=== PATIENT | male | born 1965 | race African-American/Black ===

== ENCOUNTER 2017-11-20 17:55 | Observation (INO) | payer BC, OTHER ==
[2017-11-20 18:15] VITALS: BMI 37.3
--- NOTE | 2017-11-20 18:39 | PDOC ---
History of Present Illness - General Chief Complaint: Pain, Acute Stated Complaint: STOMACH PAIN Time Seen by Provider: 11/20/17 18:38 - History of Present Illness Initial Comments: 11/20/17 18:40 Mr. Metcalf is a 52 yo male w/ pmh of HTN and HLD who presents... Past History - Past Medical History Allergies/Adverse Reactions: Allergies Allergy/AdvReac Type Severity Reaction Status Date / Time No Known Allergies Allergy Verified 05/22/15 14:51 Home Medications: Ambulatory Orders Aspirin [Aspirin EC] 325 mg PO DAILY 10/09/12 Metoprolol Succinate [Toprol XL -] 25 mg PO DAILY 10/09/12 Oxycodone HCl/Acetaminophen [Percocet 5/325 -] 1 tab PO Q4H #30 tablet 05/22/15 Cardiac Disorders: Yes (HOSPITALIZED 2010 AT [facility], [place]) COPD: No HTN: Yes Hypercholesterolemia: Yes - Suicide/Smoking/Psychosocial Hx Smoking Status: No Smoking History: Never smoked Have you smoked in the past 12 months: No Number of Cigarettes Smoked Daily: 0 Information on smoking cessation initiated: No Hx Alcohol Use: Yes ("occasional") Drug/Substance Use Hx: No Substance Use Type: None *Physical Exam - Vital Signs Last Vital Signs Temp Pulse Resp BP Pulse Ox 97.7 F 74 20 149/88 98 11/20/17 18:08 11/20/17 18:08 11/20/17 18:08 11/20/17 18:08 11/20/17 18:08
--- NOTE | 2017-11-20 18:45 | PDOC ---
Attending Attestation - [facility] HPI: 11/20/17 19:49 The patient is a 52 year old male, with a significant past medical history of HTN, HLD, AK (2010), who presents to the emergency department with, 4 days of intermittent epigastric pain. He describes his pain as a quick, sharp spasm radiating to his chest. He describes the pain to be similar to that of his AK in 2010. He saw his PCP on whom performed an EKG which was unchanged. He visits his brown sourer Dr. Camara every 6 months and next appointment is 11/29. He denies any diaphoresis. He denies any recent fevers, chills, headache or dizziness. He denies any recent nausea, vomit, diarrhea or constipation. He denies any recent shortness of breath. He denies any recent dysuria, frequency, urgency or hematuria. Allergies: NKA Past surgical history: None reported. Social History: Nonsmoker. Denies EtOH use and recreational drug use. - Physicial Exam PE: 11/20/17 19:49 Constitutional: Awake, alert, oriented. No acute distress. Head: Normocephalic. Atraumatic Eyes: PERRL. EOMI. Conjunctivae are not pale. ENT: Mucous membranes are moist and intact. Posterior pharynx without exudates or erythema. Uvula midline. Neck: Supple. Full ROM. No lymphadenopathy. Cardiovascular: Regular rate. Regular rhythm. S1, S2 regular. Distal pulses are 2+ and symmetric. Pulmonary/Chest: No evidence of respiratory distress. Clear to auscultation bilaterally No wheezing, rales or rhonchi. +Abdominal: Mild epigastric tenderness. Soft and non-distended. No rebound, guarding or rigidity. No organomegaly. No palpable masses. Good bowel sounds. Back: No CVA tenderness. Musculoskeletal: No edema. No cyanosis. No clubbing. Full range of motion in all extremities. N calf tenderness. Radial/pedal pulses are intact and 2+ bilaterally Skin: Skin is warm and dry. No petechiae. No purpura. Neurological: Alert and oriented to person, place, and time. Cranial nerves II -XII are grossly intact. Normal speech. Strength is grossly symmetric. No sensory deficits. Psychiatric: Good eye contact. Normal interaction, affect and behavior. <Cassia Mcnally - Last Filed: 11/20/17 21:32> - Resident Resident Name: Tru Garrison - ED Attending Attestation I have performed the following: I have examined & evaluated the patient, The case was reviewed & discussed with the resident, I agree w/resident's findings & plan, Exceptions are as noted - Medical Decision Making 11/20/17 18:45 I, Dr. Sandra Vega, DO, attest that this document has been prepared under my direction and personally reviewed by me in its entirety. I further attest, that it accurately reflects all work, treatment, procedures and medical decision -making performed by me. 11/20/17 19:33 a/p: 52yo male with hx of NSTEMI in 2010 - no stents, takes ASA 324 daily with intermittent epigastric/cp since -states symptoms are similar to NSTEMI in 2010 -Dr. Schafer is Cards -took his asa today -will check labs, ekg, cxr -will need tele obs for cards eval in the am -never had cath or stents 11/20/17 20:14 pt with vomiting - will medicate will obtain bedside RUQ u/s to eval for biliary disease 11/20/17 20:15 cxr without acute findings 11/20/17 21:56 pt states feeling better at this time no longer with n/v trop negative will place in obs for cards eval in AM and repeat trops 11/20/17 22:13 bedside ultrasound of RUQ - no gallstones visualized, no pericholecystic fluid, no gb wall thickening <Sandra Vega - Last Filed: 11/20/17 22:14> Heart Score/ECG Review - [facility]as Comment: 11/20/17 19:34 sinus at 69, nl axis, nl interval, t wave inversions III which are unchanged from 2009 <Sandra Vega - Last Filed: 11/20/17 22:14> Attestations - Attestations 11/20/17 19:50 Documentation prepared by Cassia Mcnally, acting as medical concierge for Sandra Vega DO. <Cassia Mcnally - Last Filed: 11/20/17 21:32>
[2017-11-20] MEDS ORDERED: SODIUM CHLORIDE 1,000 ML IV STA (19:07)
--- NOTE | 2017-11-20 19:07 | PDOC ---
History of Present Illness - General Chief Complaint: Pain, Acute Stated Complaint: STOMACH PAIN Time Seen by Provider: 11/20/17 18:38 - History of Present Illness Initial Comments: 11/20/17 19:13 The patient is a 52 year old male with a history of HTN, HLD, MO who presents for evaluation of abdominal pain. The patient reports onset of poorly described epigastric abdominal pain beginning 4 days ago with radiation into his chest. He notes that his symptoms are intermittent and feel like "spasms" but denies any exacerbating or relieving factors. He notes that his symptoms feel somewhat similar to his primary MO in 2010. He otherwise denies fevers, chills, SOB, nausea, vomiting, or changes with urination or bowel movements. Past History - Past Medical History Allergies/Adverse Reactions: Allergies Allergy/AdvReac Type Severity Reaction Status Date / Time No Known Allergies Allergy Verified 11/20/17 19:26 Home Medications: Ambulatory Orders Aspirin [Aspirin EC] 325 mg PO DAILY 10/09/12 Metoprolol Succinate [Toprol XL -] 25 mg PO DAILY 10/09/12 Oxycodone HCl/Acetaminophen [Percocet 5/325 -] 1 tab PO Q4H #30 tablet 05/22/15 Omeprazole 2 cap PO DAILY 11/20/17 Rosuvastatin Calcium [Crestor] 5 mg PO DAILY 11/20/17 Cardiac Disorders: Yes (HOSPITALIZED 2010 AT [place], [place]) COPD: No HTN: Yes Hypercholesterolemia: Yes - Suicide/Smoking/Psychosocial Hx Smoking Status: No Smoking History: Never smoked Have you smoked in the past 12 months: No Number of Cigarettes Smoked Daily: 0 Information on smoking cessation initiated: No Hx Alcohol Use: Yes ("occasional") Drug/Substance Use Hx: No Substance Use Type: None Review of Systems - Review of Systems Comments:: 11/20/17 19:15 Constitutional: No fevers, chills, fatigue, malaise HEENT: No Rhinorrhea, nasal congestion, visual changes Cardiovascular: No syncope, palpitations, lightheadedness Respiratory: No Cough, SOB, Hemoptysis, Gastrointestinal: Abdominal pain. No Nausea, Vomiting, Constipation, Diarrhea, Melena Genitourinary: No Dysuria, Frequency, Urgency, Hesitancy, Hematuria, Flank pain Musculoskeletal: No Myalgia, arthralgia Skin: No rashes, itching, bruising, pallor Neurologic: No Headache, Dizziness, Numbness, Weakness, or Tingling Psychiatric: No Hallucinations. No SI or HI *Physical Exam - Vital Signs Last Vital Signs Temp Pulse Resp BP Pulse Ox 97.7 F 74 20 149/88 98 11/20/17 18:08 11/20/17 18:08 11/20/17 18:08 11/20/17 18:08 11/20/17 18:08 - Physical Exam Comments: 11/20/17 19:16 General Appearance: Nourished. No Apparent Distress HEENT: EOMI, ANTWAN. No Pharyngeal Erythema, Tonsillar Exudate, Tonsillar Erythema Neck: No Cervical Lymphadenopathy Respiratory/Chest: Lungs Clear, Normal Breath Sounds. No Crackles, Rales, Rhonchi, Wheezing Cardiovascular: Regular Rhythm, Regular Rate. No Murmur, Gallops, Rubs Gastrointestinal/Abdominal: Normal Bowel Sounds, Soft. Mild epigastric tenderness to deep palpation on exam. No Guarding, Rebound, Musculoskeletal: No CVA Tenderness Extremity: Normal Capillary Refill Integumentary: Normal Color, Dry, Warm Neurologic: Fully Oriented, Alert, Normal Mood/Affect, Normal Response, Heart Score/ECG Review - History History: Moderately suspicious - Electrocardiogram EKG: Normal - Age Age: 45-65 - Risk Factors Risk Factors Heart Score: Yes Hx Hypercholesterolemia, Yes Hx Hypertension, Yes Positive family hx of cardiac disease, Yes Hx Obesity Based on the list above the patient has:: >/=3 risk factors or Hx atherosclerotic disease - Troponin Troponin: </= normal limit - Score Heart Score - Total: 4 #1 ECG reviewed & interpreted by me at: 19:09 General ECG Interpretation: Sinus Rhythm, Normal Rate, Normal Intervals, No acute ischemic changes Compared to previous ECG there are: No significant change (05/20/2010) ED Treatment Course - LABORATORY CBC & Chemistry Diagram: 11/20/17 19:40 11/20/17 20:50 Medical Decision Making - Medical Decision Making 11/20/17 19:17 The patient is a 52 year old male with a history of HTN, HLD, MO who presents for evaluation of abdominal pain. Differential includes but is not limited to: ACS, Gastritis, Pancreatitis, Infectious, Metabolic Derangement. Given the patient's history and physical exam, we will obtain a cbc, cmp, troponin, lipase , ekg, chest plain film to evaluate further for possible etiologies. We will treat the patient with aspirin, iv fluids, pepcid, maalox. We will continue to monitor and reassess while here in the ED. 11/21/17 03:51 CBC, cmp, troponin, lipase are unremarkable. Chest plain film is unremarkable. However, given the patient's cardiac history with similar presenting symptoms , we believe he requires tele obs admission for cardiology consultation and further monitoring. We discussed the case with the admitting team who accepted the patient for admission. *DC/Admit/Observation/Transfer Diagnosis at time of Disposition: Chest pain Qualifiers: Chest pain type: unspecified Qualified Code(s): R07.9 - Chest pain, unspecified - Discharge Dispostion Condition at time of disposition: Stable Decision to Admit order: Yes - Referrals - Patient Instructions - Post Discharge Activity
[2017-11-20] MEDS ORDERED: MAG HYDROX/AL HYDROX/SIMETH 30 ML UNIT-DOSE CUP PO ONE (19:08)
[2017-11-20] MEDS ORDERED: ASPIRIN 81 MG CHEWABLE TABLETS PO ONE (19:21)
[2017-11-20] MEDS ORDERED: FAMOTIDINE 20 MG/50 ML IVPB 20 MG/50 ML MG IVPB ONE ×2 (19:45→19:55)
[2017-11-20 19:52] LABS: EOS % 2.3 % (0-4.5); HEMATOCRIT 42.7 % (35.4-49); HEMOGLOBIN 14.3 GM/dL (11.7-16.9); LYMPH % 19.6 % (8-40); MCHC 33.5 g/dl (32.0-35.9); MEAN CELL VOLUME 83.5 fl (80-96); MEAN PLT VOLUME 8.9 fl (7.5-11.1); NEUT % 70.1 % (42.8-82.8); PLATELET COUNT 227 K/MM3 (134-434); RBC 5.12 M/mm3 (4.00-5.60); RDW 14.2 % (11.9-15.9); WHITE BLOOD COUNT 8.2 K/mm3 (4.0-10.0)
[2017-11-20] MEDS ORDERED: ASPIRIN 81 MG CHEWABLE TABLETS ONE (19:54)
[2017-11-20] MEDS ORDERED: MAG HYDROX/AL HYDROX/SIMETH 30 ML UNIT-DOSE CUP ONE (19:55)
[2017-11-20] MEDS ORDERED: ONDANSETRON 4 MG/2 ML VIAL IVPUSH ONE (20:11)
[2017-11-20] MEDS ORDERED: ONDANSETRON 4 MG/2 ML VIAL ONE (20:14)
[2017-11-20 21:30] LABS: ALBUMIN 3.7 g/dl (3.4-5.0); ANION GAP 9 (8-16); BLOOD UREA NITROGEN 8 mg/dL (7-18); CHLORIDE 108 mmol/L (98-107); CO2 25 mmol/L (21-32); CREATININE 0.9 mg/dL (0.7-1.3); GLUCOSE,RANDOM 113 mg/dL (74-106); SGOT/AST 27 U/L (15-37); SGPT/ALT 34 U/L (12-78); SODIUM 142 mmol/L (136-145)
[2017-11-20 21:48] LABS: ALK PHOS 93 U/L (45-117); BILIRUBIN,TOTAL 0.4 mg/dL (0.2-1.0); LIPASE 67 U/L (73-393)
[2017-11-20] MEDS ORDERED: ONDANSETRON 4 MG/2 ML VIAL IVPUSH PRN (23:11)
[2017-11-20] MEDS ORDERED: ACETAMINOPHEN 325 MG TABLET (FP) PO PRN (23:11)
[2017-11-21] MEDS ORDERED: ACETAMINOPHEN 325 MG TABLET (FP) ONE (00:15)
--- NOTE | 2017-11-21 00:27 | HP ---
CHIEF COMPLAINT: Chest pain, crampy abdominal pain PCP: Dr. Stewart HISTORY OF PRESENT ILLNESS: 52 yo man with pmh of HTN, HLD, NSTEMI (2010) who presents with intermittent epigastric crampy abdominal pain with substernal radiation, similar in quality to prior presentation of NSTEMI 7 years ago. Pt was in his [place] when he noted progressive crampy epigastric pain with deep, sharp pain radiating to substernal chest region. Pt states the pain is intermittently exacerbated by eating food, however he denies any alleviating factors or any other areas of radiation. Pt states the pain is similar in nature to prior chest pain during his past NSTEMI 7 years ago. He denies any trauma to chest area, rashes, changes in diet, GI or cardiac conditions. Pt follows with Dr. Camara over the last 7 years and has never received a cardiac cath. He does not know when his last ECHO was performed. Pt denies any CHACON, vision changes, cough, SOB, palpitations, back pain, LE edema , claudications, rashes. Pt endorses N/V and chronic reflux. ER course was notable for: (1)CXR normal (2)Trop neg x1, normal EKG (3)Given ASA 325, famotidine x1, zofran x1, Mylanta x1, NS 1L Recent Travel: None PAST MEDICAL HISTORY: HTN HLD NSTEMI (2010) PAST SURGICAL HISTORY: None Social History: Smoking: Denies Alcohol: Denies Drugs: Denies Family History: Maternal aunt with MD Allergies No Known Allergies Allergy (Verified 11/20/17 19:26) HOME MEDICATIONS: Home Medications Medication Instructions Recorded Aspirin [Aspirin EC] 325 mg PO DAILY 10/09/12 Metoprolol Succinate [Toprol XL -] 25 mg PO DAILY 10/09/12 Oxycodone HCl/Acetaminophen 1 tab PO Q4H #30 tablet 05/22/15 [Percocet 5/325 -] Omeprazole 2 cap PO DAILY 11/20/17 Rosuvastatin Calcium [Crestor] 5 mg PO DAILY 11/20/17 REVIEW OF SYSTEMS CONSTITUTIONAL: Absent: fever, chills, diaphoresis, generalized weakness, malaise, loss of appetite, weight change HEENT: Absent: rhinorrhea, nasal congestion, throat pain, throat swelling, difficulty swallowing, mouth swelling, ear pain, eye pain, visual changes CARDIOVASCULAR: + chest pain Absent: syncope, palpitations, irregular heart rate, lightheadedness, peripheral edema RESPIRATORY: Absent: cough, shortness of breath, dyspnea with exertion, orthopnea, wheezing, stridor, hemoptysis GASTROINTESTINAL: +nausea, vomiting, abdominal pain Absent: abdominal distension, diarrhea, constipation, melena, hematochezia GENITOURINARY: Absent: dysuria, frequency, urgency, hesitancy, hematuria, flank pain, genital pain MUSCULOSKELETAL: Absent: myalgia, arthralgia, joint swelling, back pain, neck pain SKIN: Absent: rash, itching, pallor HEMATOLOGIC/IMMUNOLOGIC: Absent: easy bleeding, easy bruising, lymphadenopathy, frequent infections ENDOCRINE: Absent: unexplained weight gain, unexplained weight loss, heat intolerance, cold intolerance NEUROLOGIC: Absent: headache, focal weakness or paresthesias, dizziness, unsteady gait, seizure, mental status changes, bladder or bowel incontinence PSYCHIATRIC: Absent: anxiety, depression, suicidal or homicidal ideation, hallucinations. PHYSICAL EXAMINATION Vital Signs - 24 hr 11/20/17 11/20/17 11/20/17 18:08 19:38 23:46 Temperature 97.7 F 99.1 F Pulse Rate 74 Pulse Rate [ 75 Right Radial] Respiratory 20 16 Rate Blood Pressure 149/88 Blood Pressure 134/67 [Right Arm] O2 Sat by Pulse 98 98 Oximetry (%) GENERAL: Middle aged man, Awake, alert, and fully oriented, in no acute distress. HEAD: Normal with no signs of trauma. EYES: Pupils equal, round and reactive to light, extraocular movements intact, sclera anicteric, conjunctiva clear. No lid lag. EARS, NOSE, THROAT: Ears normal, nares patent, oropharynx clear without exudates. Moist mucous membranes. NECK: Normal range of motion, supple without lymphadenopathy, JVD, or masses. LUNGS: Trace expiratory rhochi noted in RLL field. Otherwise, breath sounds equal, clear to auscultation bilaterally. No wheezes, and no crackles. No accessory muscle use. HEART: Regular rate and rhythm, normal S1 and S2 without murmur, rub or gallop. ABDOMEN: TTP in midepigastric region on superficial and deep palpation. Soft, not distended, normoactive bowel sounds, no guarding, no rebound, no masses. No hepatomegaly or splenomegaly. MUSCULOSKELETAL: Normal range of motion at all joints. No bony deformities or tenderness. No CVA tenderness. UPPER EXTREMITIES: 2+ pulses, warm, well-perfused. No cyanosis. No clubbing. No peripheral edema. LOWER EXTREMITIES: 2+ pulses, warm, well-perfused. No calf tenderness. No peripheral edema. NEUROLOGICAL: Cranial nerves II-XII intact. Normal speech. Gait not evaluated. PSYCHIATRIC: Cooperative. Good eye contact. Appropriate mood and affect. SKIN: Warm, dry, normal turgor, no rashes or lesions noted, normal capillary refill. Laboratory Results - last 24 hr CBC, BMP 11/20/17 19:40 11/20/17 20:50 11/20/17 11/20/17 11/20/17 19:40 19:40 19:40 WBC 8.2 RBC 5.12 Hgb 14.3 Hct 42.7 MCV 83.5 MCH 28.0 MCHC 33.5 RDW 14.2 D Plt Count 227 MPV 8.9 D Absolute Neuts (auto) 5.8 Neutrophils % 70.1 Lymphocytes % 19.6 D Monocytes % 7.0 Eosinophils % 2.3 Basophils % 1.0 Nucleated RBC % 0 Sodium Cancelled Potassium Cancelled Chloride Cancelled Carbon Dioxide Cancelled Anion Gap Cancelled BUN Cancelled Creatinine Cancelled Creat Clearance w eGFR Cancelled Random Glucose Cancelled Calcium Cancelled Total Bilirubin Cancelled AST Cancelled ALT Cancelled Alkaline Phosphatase Cancelled Creatine Kinase Cancelled Creatine Kinase Index CK-MB (CK-2) Troponin I Cancelled Total Protein Cancelled Albumin Cancelled Lipase Cancelled 11/20/17 20:50 WBC RBC Hgb Hct MCV MCH MCHC RDW Plt Count MPV Absolute Neuts (auto) Neutrophils % Lymphocytes % Monocytes % Eosinophils % Basophils % Nucleated RBC % Sodium 142 Potassium 4.0 Chloride 108 H Carbon Dioxide 25 Anion Gap 9 BUN 8 D Creatinine 0.9 Creat Clearance w eGFR > 60 Random Glucose 113 H D Calcium 8.0 L Total Bilirubin 0.4 AST 27 ALT 34 Alkaline Phosphatase 93 Creatine Kinase 308 Creatine Kinase Index 0.6 CK-MB (CK-2) 2.12 Troponin I < 0.02 Total Protein 7.0 Albumin 3.7 Lipase 67 L No micro CXR - No acute pathology noted EKG - Sinus, RR, NAD, normal intervals, no ischemic changes ASSESSMENT/PLAN: 52 yo man with pmh of HTN, HLD, NSTEMI (2010) who presents with intermittent epigastric crampy abdominal pain with substernal radiation, similar in quality to prior presentation of NSTEMI 7 years ago. #Chest pain - trop neg x1; EKG normal; Heart score of 1 - Cardiac monitoring - O2 support PRN - Cardiology consult - Dr. Camara - Antonieta trops - ASA 81mg - mg, phos - tylenol prn for pain - Echo - outpt cardiology f/u - consider cardiac cath if indicated - lipid profile - will start on LIUS F-I given CAD hx #Nausea/Vomiting/epigastric pain - Zofran PRN - Protonix PO #HTN - c/w home toprol XL #CAD - ASA - cardiology f/u - will likely require stress test as outpt - cardiology consult #HLD - c/w home crestor #GERD -protonix PO PPX HSQ Protonix FEN PO hydration daily lytes cardiac diet as tolerated Plan discussed with attending, Dr. Louise Garza, PGY1 Visit type - Emergency Visit Emergency Visit: Yes ED Registration Date: 11/20/17 Care time: The patient presented to the Emergency Department on the above date and was hospitalized for further evaluation of their emergent condition. - New Patient This patient is new to me today: Yes Date on this admission: 11/22/17 - Critical Care Critical Care patient: No Hospitalist Screening - Colonoscopy Questionnaire Colonoscopy Questionnaire: Colonoscopy Questionnaire - Patient: 50 - 75 years old and never had a screening colonoscopy: Unknown History of colon or rectal polyps, or CA: Unknown History of IBD, Crohn's disease or UC: Unknown History of abdominal radiation therapy as a child: Unknown - Relative: 1 with colon or rectal CA, or polyps at age 60 or younger: Unknown Colon or rectal CA diagnosed at age 45 or younger: Unknown Multiple relatives with colon or rectal CA: Unknown - Outcome: Screening Result: Negative Screen
--- NOTE | 2017-11-21 00:36 | PN ---
Teaching Attending Note Name of Resident: Stanton Garza ATTENDING PHYSICIAN STATEMENT I saw and evaluated the patient. Chart, data, imaging reviewed. I reviewed the resident's note and discussed the case with the resident. I agree with the resident's findings and plan as documented. SUBJECTIVE: 52 yo man with HTN, HLD, NSTEMI (2010), never had angiography, c/o intermittent epigastric pain that he describes similar to pain in when he had SC in 2011. Pain is not worsened with exercise. No history of trauma. No fevers. Minimal relief with PPI. OBJECTIVE: Last Vital Signs Temp Pulse Resp BP Pulse Ox 99.1 F 75 16 134/67 98 11/20/17 23:46 11/20/17 23:46 11/20/17 23:46 11/20/17 23:46 11/20/17 19:38 general- nad, aaox3 heent - no scleral pallor neck -supple cv - s1+S2+rrr chest cta abdomen -obese skin - no pedal edema Abnormal Lab Results 11/20/17 20:50 Chloride 108 H Random Glucose 113 H D Calcium 8.0 L Lipase 67 L ekg reviewed by me, nsr, no ischemic changes noted, pending official read ASSESSMENT AND PLAN: 52yo man with epigastric pain- troponin and ekg not suggestive of acs. Heart score was 4. Other potential causes of pain include gastritis and PUD. Lipase was wnl so no pancreatitis. -tele/obsevation -trend troponin -ASA 81mg po -statin -B juliann/ACEi, given history of ACS -transthoracic echo -cardiac stress test as an outpatient -PPI empirically -send stool for H pylori ag heparin sc for dvt ppx
[2017-11-21] MEDS ORDERED: HEPARIN NA (PORCINE) 5,000 UNITS/ML 1ML VIAL ONE (05:53)
[2017-11-21] MEDS ORDERED: HEPARIN NA (PORCINE) 5,000 UNITS/ML 1ML VIAL SQ SCH (06:00)
[2017-11-21 06:44] LABS: BASO % 0.6 % (0-2.0); EOS % 1.1 % (0-4.5); HEMATOCRIT 37.9 % (35.4-49); HEMOGLOBIN 12.9 GM/dL (11.7-16.9); LYMPH % 9.6 % (8-40); MCH 28.6 pg (25.7-33.7); MCHC 34.1 g/dl (32.0-35.9); MEAN PLT VOLUME 8.9 fl (7.5-11.1); MONO % 7.1 % (3.8-10.2); NEUT % 81.6 % (42.8-82.8); PLATELET COUNT 195 K/MM3 (134-434); RBC 4.52 M/mm3 (4.00-5.60); RDW 14.1 % (11.9-15.9); WHITE BLOOD COUNT 8.4 K/mm3 (4.0-10.0)
[2017-11-21 06:59] LABS: INR 1.22 (0.82-1.09); PROTHROMBIN TIME (PATIENT) 13.8 SEC (9.7-13.0)
[2017-11-21 07:01] LABS: ACTIVATED PTT 27.2 SECONDS (25.2-36.5)
[2017-11-21 07:11] LABS: BLOOD UREA NITROGEN 8 mg/dL (7-18); CHLORIDE 105 mmol/L (98-107); POTASSIUM 4.6 mmol/L (3.5-5.1); SODIUM 140 mmol/L (136-145)
[2017-11-21 07:17] LABS: ALBUMIN 3.5 g/dl (3.4-5.0); ALK PHOS 89 U/L (45-117); ANION GAP 7 (8-16); BILIRUBIN,TOTAL 0.6 mg/dL (0.2-1.0); CALCIUM 8.2 mg/dL (8.5-10.1); CO2 28 mmol/L (21-32); CREATININE 0.9 mg/dL (0.7-1.3); GLUCOSE,RANDOM 106 mg/dL (74-106); MAGNESIUM 2.3 mg/dL (1.8-2.4); PHOSPHOROUS 4.1 mg/dL (2.5-4.9); SGOT/AST 22 U/L (15-37); SGPT/ALT 30 U/L (12-78); TOT PROT 6.8 g/dl (6.4-8.2)
--- NOTE | 2017-11-21 08:20 | PN ---
Physical Exam: SUBJECTIVE: Patient seen and examined at bed side this morning. No complaints. Chest pain and abdominal pain has resolved. Denies sob, cough, palpitation, nausea or vomiting. Bowel/Bladder habit normal. Sleep/Appetite normal No acute overnight events. OBJECTIVE: Vital Signs Period Temp Pulse Resp BP Sys/Casas Pulse Ox Last 24 Hr 97.7 F-99.1 F 74-77 13-20 128-149/67-88 98-98 GENERAL: Middle aged male, sitting comfortably in bed, is awake, alert, and fully oriented, in no acute distress. HEAD: Normal with no signs of trauma. EYES: EOM intact, no pallor or icterus. ENT: Ears normal, moist mucous membranes. NECK: Supple. LUNGS: B/L Breath sounds equal, clear to auscultation bilaterally, no wheezes, no crackles, no accessory muscle use. HEART: Regular rate and rhythm, S1, S2 without murmur, rub or gallop. ABDOMEN: Soft, nontender, nondistended, normoactive bowel sounds, no guarding, no rebound, no hepatosplenomegaly, no masses. EXTREMITIES: 2+ pulses, warm, well-perfused, no edema. NEUROLOGICAL: No facial droop, power 5/5 in all ext, Cranial nerves II through XII grossly intact. Normal speech, gait not observed. PSYCH: Normal mood, normal affect. SKIN: Warm, dry, normal turgor, no rashes or lesions noted Laboratory Results - last 24 hr 11/20/17 11/20/17 11/20/17 19:40 19:40 19:40 WBC 8.2 RBC 5.12 Hgb 14.3 Hct 42.7 MCV 83.5 MCH 28.0 MCHC 33.5 RDW 14.2 D Plt Count 227 MPV 8.9 D Absolute Neuts (auto) 5.8 Neutrophils % 70.1 Lymphocytes % 19.6 D Monocytes % 7.0 Eosinophils % 2.3 Basophils % 1.0 Nucleated RBC % 0 PT with INR INR PTT (Actin FS) Sodium Cancelled Potassium Cancelled Chloride Cancelled Carbon Dioxide Cancelled Anion Gap Cancelled BUN Cancelled Creatinine Cancelled Creat Clearance w eGFR Cancelled Random Glucose Cancelled Calcium Cancelled Phosphorus Magnesium Total Bilirubin Cancelled AST Cancelled ALT Cancelled Alkaline Phosphatase Cancelled Creatine Kinase Cancelled Creatine Kinase Index CK-MB (CK-2) Troponin I Cancelled Total Protein Cancelled Albumin Cancelled Lipase Cancelled 11/20/17 11/21/17 11/21/17 20:50 05:55 05:55 WBC 8.4 RBC 4.52 Hgb 12.9 Hct 37.9 MCV 84.0 MCH 28.6 MCHC 34.1 RDW 14.1 Plt Count 195 MPV 8.9 Absolute Neuts (auto) 6.9 Neutrophils % 81.6 Lymphocytes % 9.6 D Monocytes % 7.1 Eosinophils % 1.1 Basophils % 0.6 Nucleated RBC % 0 PT with INR 13.80 H INR 1.22 H PTT (Actin FS) 27.2 Sodium 142 Potassium 4.0 Chloride 108 H Carbon Dioxide 25 Anion Gap 9 BUN 8 D Creatinine 0.9 Creat Clearance w eGFR > 60 Random Glucose 113 H D Calcium 8.0 L Phosphorus Magnesium Total Bilirubin 0.4 AST 27 ALT 34 Alkaline Phosphatase 93 Creatine Kinase 308 Creatine Kinase Index 0.6 CK-MB (CK-2) 2.12 Troponin I < 0.02 Total Protein 7.0 Albumin 3.7 Lipase 67 L 11/21/17 11/21/17 05:55 05:55 WBC RBC Hgb Hct MCV MCH MCHC RDW Plt Count MPV Absolute Neuts (auto) Neutrophils % Lymphocytes % Monocytes % Eosinophils % Basophils % Nucleated RBC % PT with INR INR PTT (Actin FS) Sodium 140 Potassium 4.6 Chloride 105 Carbon Dioxide 28 Anion Gap 7 L BUN 8 Creatinine 0.9 Creat Clearance w eGFR > 60 Random Glucose 106 Calcium 8.2 L Phosphorus 4.1 Magnesium 2.3 Total Bilirubin 0.6 D AST 22 ALT 30 Alkaline Phosphatase 89 Creatine Kinase 225 Creatine Kinase Index 0.9 CK-MB (CK-2) 2.11 Troponin I < 0.02 Total Protein 6.8 Albumin 3.5 Lipase Active Medications Generic Name Dose Route Start Last Admin Trade Name Freq PRN Reason Stop Dose Admin Acetaminophen 650 mg 11/20/17 23:11 11/21/17 00:15 Tylenol - PO 650 mg Q4H PRN Administration PAIN LEVEL 1-5 Aspirin 325 mg 11/21/17 10:00 Ecotrin - PO DAILY BRETT Heparin Sodium (Porcine) 5,000 unit 11/21/17 06:00 11/21/17 06:30 Heparin - SQ 5,000 unit TID BRETT Administration Metoprolol Succinate 25 mg 11/21/17 10:00 Toprol Xl - PO DAILY BRETT Ondansetron HCl 4 mg 11/20/17 23:11 Zofran Injection IVPUSH Q6H PRN NAUSEA Pantoprazole Sodium 40 mg 11/21/17 10:00 Protonix - PO DAILY BRETT Rosuvastatin Calcium 5 mg 11/21/17 22:00 Crestor - PO HS BRETT ASSESSMENT/PLAN: CXR - No acute pathology noted EKG - Sinus, RR, NAD, normal intervals, no ischemic changes ECHO: Left ventricle is normal in size. EF: 65-70 %, no regional wall motion abnormalities ASSESSMENT/PLAN: Patient is 52 year old man with pmh of HTN, HLD, NSTEMI (2010) who presented with intermittent epigastric crampy abdominal pain with substernal radiation, similar in quality to prior presentation of NSTEMI 7 years ago. # Atypical Chest pain - R/O ACS Has a h/o of NSTEMI in 2010, came in with similar presentation CHADSVASC score of 0 Admitted in Tele/Obs continuous cardiac monitoring O2 support PRN Troponin x 2 negative, third set pending Continue Aspirin 325mg PO Daily (takes 325 mg at home) Continue Metoprolol 25 mg Daily Echo was done today which was normal Tylenol PRN for pain Outpatient stress test Appreciate Dr. Camara's consult. # Nausea/Vomiting/epigastric pain-Resolved Will send Stool Ag to r/o H. pylori Zofran PRN Protonix PO # Hypertension- controlled Continue Metoprol XL 25 mg PO daily # CAD Aspirin 325mg PO daily Stress test as outpatient # Hyperlipidemia Continue home crestor 5mg PO Daily # GERD Protonix PO # FEN: Not on IV fluids, tolerating well PO Electrolytes: Mg, Phos to be added in Am lab Sodium controlled diet # Prophylaxis For DVT: On Heparin 5000 IU sq TID For GI: On Protonix # Code Status: Full Code # Medications: Confirmed with the patient. # Dispo: Admitted in Tele/Obs. Can be discharged likely tomorrow Illness, Investigation and Plan of care explained to the patient. He verbalized understanding. Case discussed with Dr. Kay. Visit type - Emergency Visit Emergency Visit: Yes ED Registration Date: 11/20/17 Care time: The patient presented to the Emergency Department on the above date and was hospitalized for further evaluation of their emergent condition. - New Patient This patient is new to me today: Yes Date on this admission: 11/21/17 - Critical Care Critical Care patient: No - Discharge Referral Referred to [facility] Med P.C.: No
[2017-11-21] MEDS ORDERED: ASPIRIN 325 MG ENTERIC COATED TABLET (FP) ONE (09:19)
[2017-11-21] MEDS ORDERED: PANTOPRAZOLE 40 MG TABLET (FP) ONE (09:19)
[2017-11-21 09:28] VITALS: PULSE 74
[2017-11-21] MEDS ORDERED: ASPIRIN 81 MG CHEWABLE TABLETS PO SCH (10:00)
[2017-11-21] MEDS ORDERED: PANTOPRAZOLE 40 MG TABLET (FP) PO SCH (10:00)
[2017-11-21] MEDS ORDERED: metoPROLOL SUCCINATE 25 MG TAB.SR.24H (FP) PO SCH (10:00)
[2017-11-21] MEDS ORDERED: ASPIRIN 325 MG ENTERIC COATED TABLET (FP) PO SCH (10:00)
--- NOTE | 2017-11-21 12:47 | CON.CARD ---
Consult Consult Specialty:: Cardiology Referred by:: Hospitalist Medicine Reason for Consultation:: Epigastric and chest pain - History of Present Illness Chief Complaint: Epigastric and chest pain History of Present Illness: 52 yo man with HTN, HLD, lone paroxysmal atrial fibrillation [id number] , h/o IN c/o intermittent sharp epigastric pain radiating to chest since resolved. Pain is not worsened with exercise. Patient denies associated sxs of dyspnea, near or true syncope, palpitations, orthopnea, PND, LE edema or change in exercise capacity. - History Source History Provided By: Patient Limitations to Obtaining History: No Limitations - Past Medical History Cardio/Vascular: Yes: AFIB, HTN, Hyperlipdemia, IN - Alcohol/Substance Use Hx Alcohol Use: Yes ("occasional") - Smoking History Smoking history: Never smoked Have you smoked in the past 12 months: No Aproximately how many cigarettes per day: 0 Home Medications - Allergies Allergies/Adverse Reactions: Allergies Allergy/AdvReac Type Severity Reaction Status Date / Time No Known Allergies Allergy Verified 11/20/17 19:26 - Home Medications Home Medications: Ambulatory Orders Aspirin [Aspirin EC] 325 mg PO DAILY 10/09/12 Metoprolol Succinate [Toprol XL -] 25 mg PO DAILY 10/09/12 Oxycodone HCl/Acetaminophen [Percocet 5/325 -] 1 tab PO Q4H #30 tablet 05/22/15 Omeprazole 2 cap PO DAILY 11/20/17 Rosuvastatin Calcium [Crestor] 5 mg PO DAILY 11/20/17 Review of Systems - Review of Systems Cardiovascular: reports: Chest Pain Gastrointestinal: reports: Abdominal Pain Vital Signs: Vital Signs Temperature 97.9 F 11/21/17 09:27 Pulse Rate 74 11/21/17 09:27 Respiratory Rate 18 11/21/17 09:27 Blood Pressure 128/67 11/21/17 09:27 O2 Sat by Pulse Oximetry (%) 96 11/21/17 09:27 Constitutional: Yes: No Distress, Calm Neck: Yes: Supple Respiratory: Yes: Regular, CTA Bilaterally Gastrointestinal: Yes: Normal Bowel Sounds, Soft Cardiovascular: Yes: Regular Rate and Rhythm JVD: No Carotid Bruit: No Heart Sounds: Yes: S1, S2 Edema: No - Other Data Labs, Other Data: CBC, BMP 11/21/17 05:55 11/21/17 05:55 INR, PTT INR 1.22 (0.82-1.09) H 11/21/17 05:55 Troponin, BNP 11/20/17 11/20/17 11/21/17 19:40 20:50 05:55 Troponin I Cancelled < 0.02 < 0.02 Troponin, BNP 11/20/17 11/20/17 11/21/17 19:40 20:50 05:55 Troponin I Cancelled < 0.02 < 0.02 NSR @ 69 Ejection Fraction %: LVEF > or = 40 % Imaging - Results Chest X-ray: Report Reviewed (NAD) Problem List - Problems (1) Paroxysmal atrial fibrillation Code(s): I48.0 - PAROXYSMAL ATRIAL FIBRILLATION (2) Hyperlipidemia Code(s): E78.5 - HYPERLIPIDEMIA, UNSPECIFIED Qualifiers: Hyperlipidemia type: pure hypercholesterolemia Qualified Code(s): E78.00 - Pure hypercholesterolemia, unspecified; E78.0 - Pure hypercholesterolemia (3) Chest pain Code(s): R07.9 - CHEST PAIN, UNSPECIFIED Qualifiers: Chest pain type: unspecified Qualified Code(s): R07.9 - Chest pain, unspecified Assessment/Plan Echo: November 212017 Normal biventricular size and fxn with mild cLVH, LVEF 65-70 %, normal atrial sizes, mild IN ASSESSMENT: 1. Atypical chest pain 2. Lone PAF->SR [id number], h/o DCCV 3. Hyperlipidemia 4. H/o IN 5. Low vit D levels P:1. Ruled out for IN 2. May be dced with plan for outpatient stress testing 3. Continue Toprol XL 25 qd, ECASA 325 qd, Crestor 5 qd 4. Thank you for consultative opportunity, f/u with me in office
--- NOTE | 2017-11-21 13:48 | DS ---
Physical Exam: SUBJECTIVE: Patient seen and examined at bed side this morning. No complaints. Chest pain and abdominal pain has resolved. Denies sob, cough, palpitation, nausea or vomiting. Bowel/Bladder habit normal. Sleep/Appetite normal No acute overnight events. OBJECTIVE: Vital Signs Period Temp Pulse Resp BP Sys/Casas Pulse Ox Last 24 Hr 97.7 F-99.1 F 74-77 13-20 128-149/67-88 96-98 PHYSICAL EXAM GENERAL: Middle aged male, sitting comfortably in bed, is awake, alert, and fully oriented, in no acute distress. HEAD: Normal with no signs of trauma. EYES: EOM intact, no pallor or icterus. ENT: Ears normal, moist mucous membranes. NECK: Supple. LUNGS: B/L Breath sounds equal, clear to auscultation bilaterally, no wheezes, no crackles, no accessory muscle use. HEART: Regular rate and rhythm, S1, S2 without murmur, rub or gallop. ABDOMEN: Soft, nontender, nondistended, normoactive bowel sounds, no guarding, no rebound, no hepatosplenomegaly, no masses. EXTREMITIES: 2+ pulses, warm, well-perfused, no edema. NEUROLOGICAL: No facial droop, power 5/5 in all ext, Cranial nerves II through XII grossly intact. Normal speech, gait not observed. PSYCH: Normal mood, normal affect. SKIN: Warm, dry, normal turgor, no rashes or lesions noted LABS Laboratory Results - last 24 hr 11/20/17 11/20/17 11/20/17 19:40 19:40 19:40 WBC 8.2 RBC 5.12 Hgb 14.3 Hct 42.7 MCV 83.5 MCH 28.0 MCHC 33.5 RDW 14.2 D Plt Count 227 MPV 8.9 D Absolute Neuts (auto) 5.8 Neutrophils % 70.1 Lymphocytes % 19.6 D Monocytes % 7.0 Eosinophils % 2.3 Basophils % 1.0 Nucleated RBC % 0 PT with INR INR PTT (Actin FS) Sodium Cancelled Potassium Cancelled Chloride Cancelled Carbon Dioxide Cancelled Anion Gap Cancelled BUN Cancelled Creatinine Cancelled Creat Clearance w eGFR Cancelled Random Glucose Cancelled Calcium Cancelled Phosphorus Magnesium Total Bilirubin Cancelled AST Cancelled ALT Cancelled Alkaline Phosphatase Cancelled Creatine Kinase Cancelled Creatine Kinase Index CK-MB (CK-2) Troponin I Cancelled Total Protein Cancelled Albumin Cancelled Lipase Cancelled 11/20/17 11/21/17 11/21/17 20:50 05:55 05:55 WBC 8.4 RBC 4.52 Hgb 12.9 Hct 37.9 MCV 84.0 MCH 28.6 MCHC 34.1 RDW 14.1 Plt Count 195 MPV 8.9 Absolute Neuts (auto) 6.9 Neutrophils % 81.6 Lymphocytes % 9.6 D Monocytes % 7.1 Eosinophils % 1.1 Basophils % 0.6 Nucleated RBC % 0 PT with INR 13.80 H INR 1.22 H PTT (Actin FS) 27.2 Sodium 142 Potassium 4.0 Chloride 108 H Carbon Dioxide 25 Anion Gap 9 BUN 8 D Creatinine 0.9 Creat Clearance w eGFR > 60 Random Glucose 113 H D Calcium 8.0 L Phosphorus Magnesium Total Bilirubin 0.4 AST 27 ALT 34 Alkaline Phosphatase 93 Creatine Kinase 308 Creatine Kinase Index 0.6 CK-MB (CK-2) 2.12 Troponin I < 0.02 Total Protein 7.0 Albumin 3.7 Lipase 67 L 11/21/17 11/21/17 05:55 05:55 WBC RBC Hgb Hct MCV MCH MCHC RDW Plt Count MPV Absolute Neuts (auto) Neutrophils % Lymphocytes % Monocytes % Eosinophils % Basophils % Nucleated RBC % PT with INR INR PTT (Actin FS) Sodium 140 Potassium 4.6 Chloride 105 Carbon Dioxide 28 Anion Gap 7 L BUN 8 Creatinine 0.9 Creat Clearance w eGFR > 60 Random Glucose 106 Calcium 8.2 L Phosphorus 4.1 Magnesium 2.3 Total Bilirubin 0.6 D AST 22 ALT 30 Alkaline Phosphatase 89 Creatine Kinase 225 Creatine Kinase Index 0.9 CK-MB (CK-2) 2.11 Troponin I < 0.02 Total Protein 6.8 Albumin 3.5 Lipase HOSPITAL COURSE: Date of Admission:11/20/17 Date of Discharge: 11/21/17 CXR - No acute pathology noted EKG - Sinus, RR, NAD, normal intervals, no ischemic changes ECHO: Left ventricle is normal in size. EF: 65-70 %, no regional wall motion abnormalities ASSESSMENT/PLAN: Patient is 52 year old man with pmh of HTN, HLD, NSTEMI (2010) who presented with intermittent epigastric crampy abdominal pain with substernal radiation, similar in quality to prior presentation of NSTEMI 7 years ago. He presented with intermittent epigastric crampy abdominal pain with substernal radiation, similar in quality to prior presentation of NSTEMI 7 years ago. Pt was in his USOH when he noted progressive crampy epigastric pain with deep, sharp pain radiating to substernal chest region. Pt states the pain is intermittently exacerbated by eating food, however he denies any alleviating factors or any other areas of radiation. Patient went to see his PCP who recommended him to take Omeprazole without relief. Hence came in to the ED for further evaluation. # Atypical Chest pain - R/O ACS. CHADSVASC score of 0. He was admitted in Tele/ Obs, was on continuous cardiac monitoring, no acute events in Tele. Troponin x 2 negative. He was given Aspirin 325mg PO Daily (takes 325 mg at home). Continued home Metoprolol 25 mg Daily. Echo was done today which was normal. Dr. Camara saw the patient this morning, recommended outpatient stress test. # Nausea/Vomiting/epigastric pain-Resolved. Would recommend to do a Stool Ag to r/o H. Pylori as outpatient. # Hypertension- controlled: Continued home Metoprol XL 25 mg PO daily # CAD: continued Aspirin 325mg PO daily. Stress test as outpatient # Hyperlipidemia: Continued home crestor 5mg PO Daily # GERD continued Protonix PO Illness, Investigation and Plan of care explained to the patient. He verbalized understanding. Case discussed with Dr. Kay. Minutes to complete discharge: 45 Discharge Summary Reason For Visit: CHEST PAIN Current Active Problems Chest pain (Acute) Hyperlipidemia (Chronic) Paroxysmal atrial fibrillation (Chronic) Condition: Improved - Instructions Diet, Activity, Other Instructions: You were admitted for evaluation of chest pain. Your cardiac enzymes were normal , you didn't have heart attack like you had in 2010. You will need a stress test as outpatient. Please follow up with Dr. Camara within this week for further evaluation. Continue taking your home medication. F/up with your primary doctor this week. If you develop similar symptoms or any new symptoms, please come to the ER immediately. Referrals: Filemon Camara MD [Staff Physician] - Disposition: HOME - Home Medications Comprehensive Discharge Medication List: Ambulatory Orders Aspirin [Aspirin EC] 325 mg PO DAILY 10/09/12 Metoprolol Succinate [Toprol XL -] 25 mg PO DAILY 10/09/12 Omeprazole 2 cap PO DAILY 11/20/17 Rosuvastatin Calcium [Crestor] 5 mg PO DAILY 11/20/17 This patient is new to me today: Yes Date on this admission: 11/21/17 Emergency Visit: Yes ED Registration Date: 11/20/17 Care time: The patient presented to the Emergency Department on the above date and was hospitalized for further evaluation of their emergent condition. Critical Care patient: No - Discharge Referral Referred to [facility] Med P.C.: No
--- NOTE | 2017-11-21 13:59 | EKG ---
Test Reason : Blood Pressure : / mmHG Vent. Rate : 069 BPM Atrial Rate : 069 BPM P-R Int : 162 ms QRS Dur : 080 ms QT Int : 398 ms P-R-T Axes : 025 000 006 degrees QTc Int : 426 ms NORMAL SINUS RHYTHM MINIMAL VOLTAGE CRITERIA FOR LVH, MAY BE NORMAL VARIANT BORDERLINE ECG WHEN COMPARED WITH ECG OF 20-MAY-2010 08:52, NO SIGNIFICANT CHANGE WAS FOUND Confirmed by SHEN OLIVAS MD ([id number]) on 11/21/2017 1:59:14 PM Referred By: Confirmed By:SHEN OLIVAS MD
[2017-11-21 14:06] VITALS: BP 132/93; TEMP 98.7
--- NOTE | 2017-11-21 15:14 | PN ---
Teaching Attending Note Name of Resident: Gilda Arrieta ATTENDING PHYSICIAN STATEMENT I saw and evaluated the patient. I reviewed the resident's note and discussed the case with the resident. I agree with the resident's findings and plan as documented. SUBJECTIVE: OBJECTIVE: Vital Signs Period Temp Pulse Resp BP Sys/Casas Pulse Ox Last 24 Hr 97.7 F-99.1 F 74-77 13-20 128-149/67-93 96-100 Laboratory Results - last 24 hr 11/20/17 11/20/17 11/20/17 19:40 19:40 19:40 WBC 8.2 RBC 5.12 Hgb 14.3 Hct 42.7 MCV 83.5 MCH 28.0 MCHC 33.5 RDW 14.2 D Plt Count 227 MPV 8.9 D Absolute Neuts (auto) 5.8 Neutrophils % 70.1 Lymphocytes % 19.6 D Monocytes % 7.0 Eosinophils % 2.3 Basophils % 1.0 Nucleated RBC % 0 PT with INR INR PTT (Actin FS) Sodium Cancelled Potassium Cancelled Chloride Cancelled Carbon Dioxide Cancelled Anion Gap Cancelled BUN Cancelled Creatinine Cancelled Creat Clearance w eGFR Cancelled Random Glucose Cancelled Calcium Cancelled Phosphorus Magnesium Total Bilirubin Cancelled AST Cancelled ALT Cancelled Alkaline Phosphatase Cancelled Creatine Kinase Cancelled Creatine Kinase Index CK-MB (CK-2) Troponin I Cancelled Total Protein Cancelled Albumin Cancelled Lipase Cancelled 11/20/17 11/21/17 11/21/17 20:50 05:55 05:55 WBC 8.4 RBC 4.52 Hgb 12.9 Hct 37.9 MCV 84.0 MCH 28.6 MCHC 34.1 RDW 14.1 Plt Count 195 MPV 8.9 Absolute Neuts (auto) 6.9 Neutrophils % 81.6 Lymphocytes % 9.6 D Monocytes % 7.1 Eosinophils % 1.1 Basophils % 0.6 Nucleated RBC % 0 PT with INR 13.80 H INR 1.22 H PTT (Actin FS) 27.2 Sodium 142 Potassium 4.0 Chloride 108 H Carbon Dioxide 25 Anion Gap 9 BUN 8 D Creatinine 0.9 Creat Clearance w eGFR > 60 Random Glucose 113 H D Calcium 8.0 L Phosphorus Magnesium Total Bilirubin 0.4 AST 27 ALT 34 Alkaline Phosphatase 93 Creatine Kinase 308 Creatine Kinase Index 0.6 CK-MB (CK-2) 2.12 Troponin I < 0.02 Total Protein 7.0 Albumin 3.7 Lipase 67 L 11/21/17 11/21/17 11/21/17 05:55 05:55 11:28 WBC RBC Hgb Hct MCV MCH MCHC RDW Plt Count MPV Absolute Neuts (auto) Neutrophils % Lymphocytes % Monocytes % Eosinophils % Basophils % Nucleated RBC % PT with INR INR PTT (Actin FS) Sodium 140 Potassium 4.6 Chloride 105 Carbon Dioxide 28 Anion Gap 7 L BUN 8 Creatinine 0.9 Creat Clearance w eGFR > 60 Random Glucose 106 Calcium 8.2 L Phosphorus 4.1 Magnesium 2.3 Total Bilirubin 0.6 D AST 22 ALT 30 Alkaline Phosphatase 89 Creatine Kinase 225 211 Creatine Kinase Index 0.9 0.8 CK-MB (CK-2) 2.11 1.74 Troponin I < 0.02 < 0.02 Total Protein 6.8 Albumin 3.5 Lipase Current Medications Generic Name Dose Route Start Last Admin Trade Name Freq PRN Reason Stop Dose Admin Acetaminophen 650 mg 11/20/17 23:11 11/21/17 00:15 Tylenol - PO 650 mg Q4H PRN Administration PAIN LEVEL 1-5 Aspirin 325 mg 11/21/17 10:00 11/21/17 09:26 Ecotrin - PO 325 mg DAILY BRETT Administration Heparin Sodium (Porcine) 5,000 unit 11/21/17 06:00 11/21/17 06:30 Heparin - SQ 5,000 unit TID BRETT Administration Metoprolol Succinate 25 mg 11/21/17 10:00 11/21/17 09:26 Toprol Xl - PO 25 mg DAILY BRETT Administration Ondansetron HCl 4 mg 11/20/17 23:11 Zofran Injection IVPUSH Q6H PRN NAUSEA Pantoprazole Sodium 40 mg 11/21/17 10:00 11/21/17 09:26 Protonix - PO 40 mg DAILY BRETT Administration Rosuvastatin Calcium 5 mg 11/21/17 22:00 Crestor - PO HS BRETT ASSESSMENT AND PLAN:
[2017-11-21] MEDS ORDERED: ROSUVASTATIN CA 5 MG TABLET (FP) PO SCH (22:00)
[2017-11-22 08:40] LABS: MAGNESIUM 2.3 mg/dL (1.8-2.4); PHOSPHOROUS 3.4 mg/dL (2.5-4.9)
== END 2017-11-21 14:07 | disposition home or self-care (01) ==
LOC: JER 17:55 → JERBED 23:17
PROVIDERS: ADMIT Internal Medicine; ATTEND Internal Medicine
PROC: 3E033GC Introduction of Other Therapeutic Substance into Peripheral Vein, Percutaneous Approach (ICD-10-PCS; principal; 2017-11-20)
PROC: 3E0337Z Introduction of Electrolytic and Water Balance Substance into Peripheral Vein, Percutaneous Approach (ICD-10-PCS; 2017-11-20)
PROC: 3E013GC Introduction of Other Therapeutic Substance into Subcutaneous Tissue, Percutaneous Approach (ICD-10-PCS; 2017-11-20)
DX: R07.89 Other chest pain (principal); I10 Essential (primary) hypertension; I48.0 Paroxysmal atrial fibrillation; E78.5 Hyperlipidemia, unspecified; Z79.82 Long term (current) use of aspirin; K21.9 Gastro-esophageal reflux disease without esophagitis; R11.2 Nausea with vomiting, unspecified; R10.13 Epigastric pain
CPT/HCPCS: 36415; 71045-TC-FY; 80053; 82550; 82553; 83690; 83735; 84100; 84484; 85025; 85610; 85730; 93005; 93010; 93306-TC; 99284-25; G0378; J1644; J7030